=== PATIENT | female | born 1965 | race Asian ===

== ENCOUNTER 2021-10-29 09:21 | Outpatient (CLI) | payer OTHER, SELFPAY ==
--- OUTSIDE RECORDS SUMMARY | 2021-10-15 09:16 | XMS_ITS | Continuity of Care Document ---
:1965 Author Care Team Providers Name Role Phone CAMERON Bonilla Primary Care Physician MD Tyrone Marsh Attending Physician Health Concerns Concerns Review chart for current health concerns Allergies, Adverse Reactions, Alerts Allergen Type Severity Reaction Last Updated Verified Status No Known Drug Allergy Unknown September 27, Yes Active Allergy 2021 Social History Smoking Status Status Start Date End Date Date of Observat ion Never smoked tobacco September 27, 10:46am (finding) Observation Status Observation Response Date of Response Primary language is Greenlandic July 8:44am Additional Data Assigned Sex Female Problems Active Problems Medical Problem Onset Date Status HTN (hypertension) July, Active Medications Medication Status Dose Units Route Directions Qty Days Start End Ins tructions Date Date Losartan Active 50 MG PO Daily 17 September for high Potassium , blood 2021 pressure 3:51pm Losartan Active 50 MG PO Daily September once daily Potassium , for high 2021 blood 10:23a pressure m Losartan Discontinued 50 MG PO Daily July for high Potassium , , blood 2021 2021 pressure 10:07a 3:51pm m Losartan Discontinued 50 MG PO Daily July Potassium , 2021 10:06a 10:07a m m Procedures Procedure Date Performed Status DIAGNOSTIC COLONOSCOPY September 14, 2021 completed FENTANYL September 14, 2021 completed PROMETHAZINE September 14, 2021 completed SARS-COV-2 COVID-19 AMP PRB September 12, 2021 completed Screening colonoscopy September 14, 2021 completed Relevant Diagnostic Tests and/or Laboratory Data Laboratory Results Test Date/Time Result Interpretation Reference Result Perfo rming Site Range Comment Coronavirus September 12, NEGATIVE NEGATIVE The 2019 [facility] (COVID-19)(P 2021 SARS-CoV- novel [id number] [place] [address]) 9:17am 2 [place] [address] (SARS-CoV-2) target nucleic acids are not detected by RT-PCR. This result does not rule out SARS-CoV-2 in the patient, as the sensitivity of the test depends on timing of the specimen collection and quality of the specimen. Results should be correlated with the patient's history and clinical presentation . Vital Signs Vital Reading Result Reference Range Collection Date/ Time Height 58.460 [in_i] September 27, 2021 1 0:06am Height 148.49 cm September 27, 2021 1 0:06am Weight 127.00 [lb_av] September 27, 2021 1 0:06am Weight 57.109675 kg September 27, 2021 1 0:06am Body Temperature 97.3 [degF] September 27, 2021 10:06am Body Temperature 36.28 Claudia September 27, 2021 10:06am BP Systolic 162 mm[Hg] September 27, 2021 1 0:06am BP Diastolic 98 mm[Hg] September 27, 2021 1 0:06am Heart Rate 82 /min September 27, 2021 1 0:06am Respiratory rate 16 /min September 27, 2021 10:06am Body surface area 1.51 m2 September 27, 2021 10:06am BMI (Body Mass Index) 26.2 kg/m2 September 27, 2021 10:06am Advance Directives Advance Directive Response Recorded Date/Time Has patient completed a No September 27, 2021 1 0:46am Health Care Directive? Insurance Providers Guarantor Oleg Morales Address [address] [place] [id number] Contact Info. Home Phone: Payer Policy Id Coverage Subscriber's Subscriber Effective Expira tion Id Name Id Date Date Preferred [id number] Oleg Morales One Encounters Encounter Location(s) Arrival/Admit Date Discharge/Depart Date Provider(s) Registered [facility] September 27, 2021 [facility] 10:00am Tyrone BARNES Office Visit [facility] September 27, 2021 [facility] 10:00am Tyrone BARNES Registered [facility] September 14, 2021 [facility] 9:14am Turner Hansen MD Registered [facility] September 12, 2021 [facility] 9:16am Turner Hansen MD Office Visit [facility] September 12, 2021 [facility] 9:15am Turner Hansen MD Medicine Recent Diagnosis Onset Date Preventative health care Assessments 1. Medication follow-up in regard to Hypertension. Diagnosed 08/15/2021 at her physical exam with me. Please reference that note for further workup. Plan: Continue with losartan 50 mg daily. Follow-up in 2-3 months, before the medication runs out. Recommend a arm blood pressure cuff, which I wrote down for the spouse.Goal is to have it less than 130/80. 2. Pelvic pain; cervicitis on exam follow-up.Reviewed the patient's Pap smear from 08/15/2021-was unremarkable. - gonorrhea, chlamydia, wet prep for STI screening was also unremarkable -I still recommend pursuing a pelvic ultrasound given the unclear history of when her last official menses would have been present, due to the post coital bleeding that she had experienced cervical/possible endocervical inflammation she had on exam. Will proceed with pelvic exam to further assess the uterus and ovaries; I reordered Anticipate she would benefit from follow-up with [facility], but we will wait to see with the results are. 3. Preventative healthcare. Patient is due for mammogram- would be best to try to coordinate this the same day of the pelvic ultrasound. Both pelvic ultrasound and mammogram should be scheduled through her per the patient request. Plan of Treatment Instructions from visit on: 09/27/21 Please follow the provider's instructions as discussed during your visit. Future Tests Future scheduled test information is unavailable Pending Tests Test Name Date ordered Stool Culture July 20, 2021 4:00pm Future Visits Future appointment information is unavailable Referrals to Other Providers Referral information is unavailable Future Procedures Procedure Name Scheduled Date Stool Culture PITER Bilat Mammo Scrn US Pelvic TA and TV Future Medications Future medication information is unavailable Patient Instructions Patient instructions are unavailable Goals Ambulatory Goals Reach or maintain optimal well being.
--- NOTE | 2021-10-29 08:15 | CRLHL7_ITS ---
For Patients: As a result of the Century Cures Act, medical imaging exams and procedure reports are released immediately into your electronic medical record. You may view this report before your referring provider. If you have questions, please contact your health care provider. BILATERAL MAMMOGRAM WITH COMPUTER-AIDED DETECTION TECHNIQUE: CC and MLO views were obtained. These mammographic images have been obtained using full-field digital technique. These mammographic images were interpreted with the benefit of computer-aided detection. COMPARISON FILM: Previous mammograms prior to 2009 unsure of location. FINDINGS: There are scattered areas of fibroglandular density IMPRESSION: There is no radiographic evidence for malignancy. ASSESSMENT: BI-RADS Category 1: Negative RECOMMENDATION: Routine screening mammogram in 1 year. A lay language report of this examination will be provided to the patient. Mark Haywood M.D. Diagnostic Radiologist [email or web address] ROGER/Dictated by: Mark Haywood MD @ 10/29/2021 12:42:00 PM (Electronically Signed)
--- NOTE | 2021-10-29 10:15 | CRLHL7_ITS ---
For Patients: As a result of the Century Cures Act, medical imaging exams and procedure reports are released immediately into your electronic medical record. You may view this report before your referring provider. If you have questions, please contact your health care provider. INDICATION: Pelvic pain COMPARISON: none TECHNIQUE: 2D morley scale and color Doppler images were acquired of the pelvis using a transabdominal and transvaginal approach. Spectral Doppler evaluation also performed of both ovaries. FINDINGS: Sonographic images demonstrate a normal size. Left lower uterine fibroid is present measuring 2.0 x 1.4 x 1.6 cm. Uterus measures 7.0 cm in length by 2.8 cm in AP diameter by 4.2 cm in transverse dimension. The endometrial lining measures 2 mm in composite thickness. The right ovary measures 2.8 x 1.0 x 1.4 cm in size and the left ovary measures 3.1 x 1.2 x 1.7. The ovaries demonstrate normal arterial and venous blood flow on color Doppler analysis. Normal spectral Doppler evaluation of both ovaries. No torsion. There are no suspicious fluid collections within the cul-de-sac. IMPRESSION: Normal ovaries. No torsion. Left-sided uterine fibroid measuring 2 cm. Dictated by Mark Haywood MD @ 10/29/2021 1:08:39 PM (Electronically Signed)
== END 2021-10-29 09:22 | disposition home or self-care (01) ==
LOC: MAMMO 09:23
PROVIDERS: PCP Physician Assistant Medical; Visit Provider Physician Assistant Medical
DX: Z12.31 Encounter for screening mammogram for malignant neoplasm of breast (principal); R92.2 Inconclusive mammogram; R10.2 Pelvic and perineal pain
CPT/HCPCS: 76830; 76856; 77063; 77067; 93976

== ENCOUNTER 2024-04-07 13:54 | Outpatient (CLI) | payer OTHER, SELFPAY | END 2024-04-07 13:55 | disposition home or self-care (01) | PROVIDERS: PCP Physician Assistant Medical; Visit Provider Physician Assistant Medical | DX: I10 Essential (primary) hypertension (principal); Z13.29 Encounter for screening for other suspected endocrine disorder | CPT/HCPCS: 82043; 82088; 82570; 84244; 84443 ==

== ENCOUNTER 2024-04-26 12:38 | Outpatient (CLI) | payer OTHER, SELFPAY | END 2024-04-26 12:39 | disposition home or self-care (01) | LOC: RAD 12:40 | PROVIDERS: PCP Physician Assistant Medical; Visit Provider Physician Assistant Medical | DX: I10 Essential (primary) hypertension (principal); I51.7 Cardiomegaly; I35.1 Nonrheumatic aortic (valve) insufficiency; I34.0 Nonrheumatic mitral (valve) insufficiency | CPT/HCPCS: 93306 ==

== ENCOUNTER 2024-07-14 15:24 | Outpatient (CLI) | payer OTHER, SELFPAY | END 2024-07-14 15:25 | disposition home or self-care (01) | PROVIDERS: PCP Physician Assistant Medical; Visit Provider Physician Assistant Medical | DX: I10 Essential (primary) hypertension (principal) | CPT/HCPCS: 82043; 82570 ==